=== PATIENT | female | born 1970 | race Caucasian/White ===

== ENCOUNTER → 2024-07-08 10:30 | Outpatient (REF) | payer BC, SELFPAY | LOC: RAD 10:30 | PROVIDERS: ATTENDING PHYSICIAN Physician Assistant Medical | DX: M47.816 Spondylosis without myelopathy or radiculopathy, lumbar region (principal); M79.604 Pain in right leg | CPT/HCPCS: 72110; 93971 ==

== ENCOUNTER → 2024-07-12 10:32 | Outpatient (REF) | payer BC, SELFPAY | LOC: HWRAD 10:32 | PROVIDERS: ATTENDING PHYSICIAN Family Medicine | DX: M25.561 Pain in right knee (principal) | CPT/HCPCS: 73564 ==

== ENCOUNTER → 2024-07-30 06:51 | Outpatient (REF) | payer BC, SELFPAY | LOC: MRI 3T 06:51 | PROVIDERS: ATTENDING PHYSICIAN Physician Assistant Medical | DX: M54.16 Radiculopathy, lumbar region (principal) | CPT/HCPCS: 72148 ==

== ENCOUNTER 2024-10-11 06:16 | Day surgery (SDC) | payer BC, SELFPAY | END 2024-10-11 09:53 | disposition home or self-care (01) | LOC: GI 06:16 | PROVIDERS: ATTENDING PHYSICIAN Surgery; FAMILY PHYSICIAN Family Medicine | DX: Z12.11 Encounter for screening for malignant neoplasm of colon (principal); Z85.048 Personal history of other malignant neoplasm of rectum, rectosigmoid junction, and anus; Z98.0 Intestinal bypass and anastomosis status | CPT/HCPCS: G0105 ==

== ENCOUNTER → 2024-12-06 07:53 | Outpatient (REF) | payer BC, SELFPAY | LOC: RAD 07:53 | PROVIDERS: ATTENDING PHYSICIAN Internal Medicine Hematology & Oncology; FAMILY PHYSICIAN Family Medicine | DX: C20 Malignant neoplasm of rectum (principal); D50.9 Iron deficiency anemia, unspecified | CPT/HCPCS: 76700 ==

== ENCOUNTER 2024-12-27 21:51 | Emergency (ER) | payer BC, SELFPAY ==
[2024-12-27 21:52] VITALS: BP 143/96
[2024-12-27 22:38] VITALS: BP 136/80
--- NOTE | 2024-12-27 22:57 | ED.GENMED ---
History of Present Illness
General
Chief Complaint: Skin Problem
Source: patient
Exam Limitations: none
Time Seen by Provider: 12/27/24 22:39
Nursing documentation reviewed up to this point in time: agreed with
History of Present Illness
History of Present Illness:
This is a 54-year-old woman who presents with 2-day history of intermittent hives, generalized associated with significant local itching. No history of similar episodes in the past. She denies exposure to any new household products. No recent
antibiotic, no recent change in medications. She has been taking Benadryl sporadically with improvement in hives. Her last dose of Benadryl was 9:15 PM and hives have now near completely resolved. No other associated symptoms. She denies
coughing or shortness of breath, no sore throat, no abdominal pain, no nausea or vomiting, no diarrhea or constipation.
She did recently return from a cruise 2 weeks ago and one day after returning from the cruise she developed a generalized itchy maculopapular rash without associated urticaria. No specific treatment and rash has since near completely resolved. No
associated fever. No close contacts with similar rashes. She did not seek treatment for the rash.
She has hx of rectal cancer 2019. Follows with Dr Person with most recent visit recommending no further surveillance required. She does have one follow up visit with him on Wednesday01/01/25 d/t labs sowing mildly elevated creatinine which normalized
upon recheck. Abdominal US reportedly WNL as well.
Past History
Past History
ED Past Medical History: Cancer (rectal 2019), GERD, Seizures and Other
ED Past Surgical History: Bowel resection, Orthopedic and Tonsilectomy
Social History
Tobacco: Non-smoker
Alcohol: None
Drug: None
Personal:
Living: with family
Employment: Employed
Family History
Family History: Other (Noncontributory)
Phy Exam
Physical Exam
Physical Exam:
GENERAL: 54 yo F appears her stated age, bright and alert, pleasant, in NAD
EYE: pupils equal and reactive. anicteric
NECK: Supple, nontender, no meningismus, no significant adenopathy.
ENT: posterior pharynx is clear, oral mucosa is moist. TM clear b/l, nares patent. no angioedema.
CARDIAC: Regular rate and rhythm. no murmur.
LUNGS: Clear breath sounds bilaterally, no acute respiratory distress, no wheezes/rales/rhonchi
ABDOMEN: Soft, nondistended, without focal tenderness, no r/g, no cvat. normoactive BS.
NEUROLOGICAL: Alert and oriented x3, no focal neuro deficits. Gait is anguiano and steady.
SKIN: Warm and dry, normal color, skin intact. few scattered urticarial wheels over trunk right upper arm. There faint pale pink confluent dry patches b/l upper arms-posterolateral aspect.
MUSCULOSKELETAL: No C/C/E. peripheral pulses are full and equal b/l. No palpable tenderness.
PSYCH: Normal and appropriate interaction.
Course
Orders/Labs/Results
Orders:
Orders
12/27/24 22:55
Prednisone [Deltasone] 50 mg PO NOW STA
Vital Signs
Initial and Last Documented VS:
Initial Vital Signs
Temp Pulse Resp BP Pulse Ox
98.2 F 83 16 143/96 100
12/27/24 21:52 12/27/24 21:52 12/27/24 21:52 12/27/24 21:52 12/27/24 21:52
Last Documented Vital Signs
Temp Pulse Resp BP Pulse Ox
98.2 F 83 16 143/96 100
12/27/24 21:52 12/27/24 21:52 12/27/24 21:52 12/27/24 21:52 12/27/24 21:52
MDM/Problems Addressed
Differential Diagnosis Includes:
2 day hx intermittent urticaria
responding to benadryl
no definitive trigger
Hx of itchy-dermatitis type rash that is now near completely resolved appears contact dermatitis vs photsensitivity dermatitis in nature.
I do not suspect these 2 rashes are related.
no other associated symptoms, no fever and no evidence of cellulitis/infectious process.
Recommend supportive measures. continuing Benadryl as needed. Recommend short course of daily antihistamine such as Claritin or Zyrtec
Will add prednisone taper
Prompt fu with PCP
Return precautions discussed
*Pulse Oximetry
Patient hypoxic: no
*Critical Care Note
Total Time (30-74mins, 75-104mins- exclusive of procedures): Not Applicable
ED Attending Note
-
Portions of this chart may have been created with voice recognition software.� Occasional wrong word or��sound alike� substitutions may have occurred due to the inherent limitations of voice recognition software.
Discharge Plan
Departure
Patient Disposition: Home (Routine Discharge)
Date of Disposition: 12/27/24
Time of Disposition: 22:57
Patient with high blood pressure during this ER visit?: No
Condition: Good
Discharge Problem:
Urticaria
Instructions: Hives
Prescriptions:
New
prednisone 10 mg Tablet
See Rx Instructions .ROUTE .COMPLEX Qty: 30 0RF
Rx Instructions:
Take By Mouth:
40 mg daily x3 days, 30 mg daily x3 days,
20 mg daily x3 days, 10 mg daily x3 days.
No Action
alprazolam 0.25 MG tablet
0.25 mg PO HSPRN PRN (Reason: anxiety/sleep)
Patient Comments:
07/31/2020: last filled 09/09/19, 30 tabs for 10 days from [facility]
polyethylene glycol 400 [Blink Tears] 15 ML drops
2 drops BOTH EYES DAILYPRN PRN (Reason: dry eyes)
loperamide [Imodium A-D] 2 MG tablet
1 mg PO BIDPRN PRN (Reason: diarrhea)
loratadine 10 MG tablet
10 mg PO DAILY
Prilosec
1 cap PO DAILYPRN PRN (Reason: heartburn)
simethicone 80 MG tablet,chewable
80 mg PO QIDPRN PRN (Reason: gas) 7 Days Qty: 30 0RF
ibuprofen 200 MG tablet
400 mg PO Q6HPRN PRN (Reason: for abdominal pain) 7 Days Qty: 30 0RF
Zofran Odt (Orally Disintegrating):
1 tab PO Q8HPRN PRN (Reason: nausea/vomiting) Qty: 0 0RF
Rx Instructions:
Zofran 4mg ODT
ondansetron 4 mg tablet,disintegrating
4 mg PO TIDPRN PRN (Reason: nausea/vomiting) Qty: 10 0RF
Activity Restrictions/Additional Instructions:
For the next week, I want you to take a daily antihistamine, such as Claritin 10 mg or Zyrtec 10 mg daily.
You can continue Benadryl 50 mg every 4-6 hours as needed if hives recur.
You have been prescribed prednisone taper to start tomorrow.
Follow-up with Dr. Person on Wednesday as scheduled.
Follow-up with your primary care physician next week for recheck, especially if hives continue to recur.
Interventions
Interventions:
*Risk Screen - Suicide Last Done: 12/27/24 21:52
*General Assessment Last Done: 12/27/24 22:37
*Neglect/Abuse Screening Last Done: 12/27/24 21:52
*ED COVID-19 Vaccine History Last Done: 12/27/24 22:37
ED-Skin Assessment Last Done: 12/27/24 22:35
Discharge Date and Time
Print Language: TAIWANESE
[2024-12-27 23:00] VITALS: BP 113/77
[2024-12-27] MEDS: DELTASONE 50 MG PO (23:12)
== END 2024-12-27 23:15 | disposition home or self-care (01) ==
LOC: EMR 21:51
PROVIDERS: EMERGENCY PHYSICIAN Emergency Medicine; FAMILY PHYSICIAN Family Medicine
DX: L50.9 Urticaria, unspecified (principal); K21.9 Gastro-esophageal reflux disease without esophagitis; Z85.048 Personal history of other malignant neoplasm of rectum, rectosigmoid junction, and anus
CPT/HCPCS: 99283